=== PATIENT | female | born 1965 | race Caucasian/White ===

== ENCOUNTER → 2018-06-24 | Outpatient (CLI) | payer OTHER ==
[~2018-06-24] MED LIST: BUPIVACAINE 0.25% 30 ML SDV ONE; DEPO METHYLPREDNISOLONE 40 MG/ML SDV ONE; LIDOCAINE 1% 300 MG/30 ML SDV ONE
== END ==
LOC: FIMAGING 12:38
PROVIDERS: ATTEND Orthopaedic Surgery Sports Medicine
DX: M75.31 Calcific tendinitis of right shoulder (principal)
CPT/HCPCS: J1030